=== PATIENT | female | born 1945 | race Hispanic/Latino ===

== ENCOUNTER 2018-10-08 13:35 | Observation (INO) | payer MEDICARE ==
[2018-10-07 15:41] LABS: BASOPHILS # (AUTO) 0.1 (0.0-0.1); BASOPHILS % 0.5 % (0.0-1.0); EOSINOPHILS # (AUTO) 0.2 (0.0-0.4); EOSINOPHILS % 1.9 % (0.0-6.0); HEMATOCRIT 42.3 % (34.2-44.1); HEMOGLOBIN 13.9 g/dL (12.0-16.0); LYMPHOCYTES % 56.9 % (18.0-39.1); MEAN CORPUSCULAR HEMOGLOBIN 30.6 pg (28-32); MEAN CORPUSCULAR HGB CONC 32.9 g/dL (31-35); MEAN CORPUSCULAR VOLUME 93.2 fL (81-99); MONOCYTES # (AUTO) 0.6 (0.2-0.8); MONOCYTES % 5.3 % (4.4-11.3); NEUTROPHILS # (AUTO) 3.8 (2.1-6.9); NEUTROPHILS % 35.2 % (38.7-80.0); PLATELET COUNT 258 x10e3/uL (140-360); RED BLOOD COUNT 4.54 x10e6/uL (3.6-5.1); RED CELL DISTRIBUTION WIDTH 13.1 % (11.7-14.4)
[2018-10-07 15:54] LABS: INR 0.87; PROTHROMBIN TIME 12.6 seconds (11.9-14.5)
[2018-10-07 16:02] LABS: ALANINE AMINOTRANSFERASE 13 IU/L (0-55); ALBUMIN 3.9 g/dL (3.5-5.0); ALBUMIN/GLOBULIN RATIO 1.1 (0.8-2.0); ALKALINE PHOSPHATASE 56 IU/L (40-150); ANION GAP 9.9 mmol/L (8-16); BLOOD UREA NITROGEN 16 mg/dL (7-26); BUN/CREATININE RATIO 21 (6-25); CALCIUM 10.1 mg/dL (8.4-10.2); CARBON DIOXIDE 30 mmol/L (22-29); CHLORIDE 103 mmol/L (98-107); CHOL/HDL RATIO 2.5 (3.0-3.6); CHOLESTEROL 152 MD/DL (0-199); CREATININE, SERUM 0.78 mg/dL (0.57-1.11); EST GLOMERULAR FILTRATION RATE > 60 ML/MIN (60-); GLUCOSE 98 mg/dL (74-118); HDL CHOLESTEROL 62 MG/DL (40-60); LDL CHOLESTEROL 66 MG/DL (60-130); POTASSIUM 4.9 mmol/L (3.5-5.1); SODIUM 138 mmol/L (136-145); TRIGLYCERIDES 118 MG/DL (0-149)
[2018-10-07 17:21] LABS: LYMPHOCYTES % (MANUAL) 44 % (19-48); MONOCYTES % (MANUAL) 1 % (3.4-9.0); NEUTROPHILS % (MANUAL) 40 % (40-74); PLATELET ESTIMATE ADEQUATE; PLATELET MORPHOLOGY COMMENT FEW LARGE; RBC MORPHOLOGY COMMENT NORMAL
[~2018-10-08] VITALS: Ht 156.2 cm; Wt 83.5 kg
[2018-10-08] VITALS (15 sets, daily range): BP systolic 159–207; BP diastolic 61–98
[~2018-10-08 13:35] MED LIST: ALBUTEROL0.63 MG/3 NEB; ASPIR 8181 MG PO; AZITHROMYCIN250 MG PO; BENAZEPRIL HCL10 MG PO; BENAZEPRIL HCL20 MG PO; CLOPIDOGREL75 MG PO; COQ-10100 MG PO; ISOSORBIDE MONO20 MG PO; MAGNESIUM OXID400 MG PO; NORVASC10 MG PO; PROBIOTIC & AC1 EACH PO; SIMVASTATIN40 MG PO; TUMERIC PO; VENTOLIN HFA18 GM INH; VITAMIN C1000 MG PO; ZYRTEC10 MG PO
[2018-10-08] MEDS ORDERED: ALPRAZOLAM 0.5 MG TAB ONE (13:44)
[2018-10-08] MEDS ORDERED: SODIUM CHLORIDE 0.9% 1000ML 1,000 ML ONE (13:44)
[2018-10-08] MEDS ORDERED: DIPHENHYDRAMINE HCL 25 MG CAP ONE (13:44)
--- NOTE | 2018-10-08 14:13 | NUR ---
AMBULATED TO BAY 10. PREPROCEDURE TEACHING PROVIDED. PREPPED PER PROCEDURE PROTOCOL. AAOX4, VSS. DP/PT PULSES 2+ BILATERALLY. POSITIVE KALE'S TEST TO R WRIST. BENADRYL 25MG X2 PO AND XANAX 0.5MG X1 PO ADMINISTERED. BED IN LOWEST POSITION, SIDE RAILS UP, CALL LIGHT WITHIN REACH. FAMILY AT BEDSIDE.
[2018-10-08] MEDS ORDERED: MIDAZOLAM HCL 2 MG/2 ML VIAL ONE ×2 (15:43→17:37)
[2018-10-08] MEDS ORDERED: VERAPAMIL HCL 2.5 MG/ML 2 ML VIAL ONE (15:43)
[2018-10-08] MEDS ORDERED: HEPARIN SOD/SOD CHLORIDE 2,000 ML ONE (15:44)
[2018-10-08] MEDS ORDERED: LIDOCAINE HCL 2% LOCAL 20 ML VIAL ONE (15:44)
[2018-10-08] MEDS ORDERED: FENTANYL CITRATE/PF 100MCG/2 ML INJ ONE (15:44)
[2018-10-08] MEDS ORDERED: IOPAMIDOL 370 MG/ML 200 ML INFUS..BTL INJ ONE ×2 (15:44→17:47)
[2018-10-08] MEDS ORDERED: EPTIFIBATIDE 10 ML ONE (17:50)
[2018-10-08] MEDS ORDERED: TICAGRELOR 90 MG TABLET ONE (17:51)
--- NOTE | 2018-10-08 18:09 | NUR ---
1809 Received pt in Student Support Counselor recovery Room #9, Identiferx2 [facility] Dr Garcia stent fix RCAx1.Pt received 100fentnyl/3 versed ivp in r and d lab technician.Alba Castorena gave report.Rt tr band slight ooze in lab. ok to titrate at 2000pm. Iv infusing via pump to lt arm at 100cchr Assisted pt with juice po Resp RA Denies necessity to defecate or urinate Resp shallow and regular on room 98% sats. Family at bedside DR Garcia explained results.Pt scheduled for tele observation bed.Vs stable and EKg
--- NOTE | 2018-10-08 19:32 | Operative Report ---
DATE OF PROCEDURE: October 08, 2018 INDICATIONS: Coronary artery disease and abnormal stress test. PROCEDURES PERFORMED 1. Left heart catheterization. 2. Selective coronary angiography. 3. Percutaneous transluminal coronary angioplasty and stent placement to the distal right coronary artery. 4. Deployment right wrist transradial band. COMPLICATIONS: None. RECOMMENDATIONS: Dual-antiplatelet therapy for life. Access obtained in the right ulnar artery. Using ultrasound guidance, a 6-German sheath was placed. There was right coronary artery with dominant vessel. Acute marginal branch 80%. Distal RCA 70%. 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 Left anterior descending artery proximal diffuse 20% to 30%, mid and distal diffuse 30% to 50% stenosis, LV end-diastolic pressure of 10. A decision was made to intervene on the right coronary artery. The patient received intravenous heparin, Integrilin, and Brilinta for anticoagulation. The right coronary artery was cannulated using a JR4 6-German guiding catheter. A short Luge wire was advanced across the lesion, primary stent 2.5 x 12 mm at 18 atmospheres, excellent end result, less than 0% residual stenosis, ESTHER-3 flow. No complications. Guide sheaths were removed. TR band applied. Patient admitted to the hospital for observation overnight. Job#: [id number]
[2018-10-08] MEDS ORDERED: HYDRALAZINE HCL 20 MG/ML VIAL ONE (19:53)
--- NOTE | 2018-10-08 20:05 | NUR ---
Hydralyzazine 20 ivp for systolic bp greater 200 with recovery obtained 170 systolic
[2018-10-08] MEDS ORDERED: NITROGLYCERIN 0.4 MG SUBL ONE (20:19)
[2018-10-08] MEDS ORDERED: MORPHINE SULFATE INJ 4 MG/ML INJ 1ML ONE ×2 (20:27→20:41)
[2018-10-08] MEDS ORDERED: ASPIRIN 81 MG CHEW TAB PO ONE (20:30)
[2018-10-08] MEDS ORDERED: NITROGLYCERIN 0.4 MG SUBL SL ONE (20:30)
--- NOTE | 2018-10-08 20:30 | NUR ---
C/O sternal pressure pressure with diaphoresis BS 91, Medicate 0.4 NTG sl w/o relief and additional 4mg morphine sulfate for c/o 9/10 CP Cardiac enzymes drawn by lab and stat CXR done with 12 Lead.Additional 4mg IVP MOrphine and Lasic [address] Omer Bed Disposition changed to ICU status.
[2018-10-08] MEDS ORDERED: FUROSEMIDE INJ 10 MG/ML 4 ML VIAL ONE (20:41)
--- NOTE | 2018-10-08 20:56 | NUR ---
Returned to Cardiac Solution Manager related status change for patient. Patient c/o chest pain and shortness of breath. Dr. Garcia notified. Order provided for ICU , cardiac enzymes, and stat EKG. Additional order for 40 Lasix IV and 4mg Morphine. Additional order for IV 50ml/hr and stat chest x-ray. Laurie Hernandez RN administered medications and Lluvia Fonseca RN provided assistance.
[2018-10-08 21:10] LABS: CREATINE KINASE MB 1.6 ng/mL (0-5.0)
--- NOTE | 2018-10-08 21:30 | NUR ---
2129 phone report to Emily ICU nurse. Dr Garcia, [facility] fix with 1 stent to RCA. 100 Fentanyl/3Versed given by Alba LEONARDO Sedation labor mediator nurse. SL Nitroglycerin 0.4mgx1,w/o relief .additional 4mg iv Morphine at 2034pm and 2044pm for total 8mg ivp.O2 2Lnc per pt request sats 100% at this time 40 mg lasix ivp.given with Multiple times served bedpan and void qs. Stat 12lead read Dr Garcia(remote per Lluvia LEONARDO) and Stat cardiac enzymes drawn and Stat Cxr pending results. Monitor remains NSR pain complain pain sternal pressure radiates to back still 9/10 pain. This reported to ICU nurse,Rt TR band ooze and TR band titration slowed with positive 6cc in 12cc TR band present. Pt instructed to no move Rt arm. Rt radial pulse present. Stick was rt ulnar and no active bleed.TR band device intact Iv 400 0.9 NS at 50cchr and controller. Transported with zoll monitoring on.
--- NOTE | 2018-10-08 22:30 | NUR ---
Received patient anxious, high blood pressures running systolics above 190, complaining of pain at a scale of 10 despite both doses of morphine, hydralazine and nitroglycerine having been administered. Settled calmly in bed and reassured
--- NOTE | 2018-10-08 23:06 | Diagnostic Imaging Report ---
EXAM: CHEST SINGLE (PORTABLE), AP 1 view INDICATION: Chest pain COMPARISON: None FINDINGS: LINES/TUBES: None LUNGS: No consolidations or edema. PLEURA: No effusions or pneumothorax. HEART AND MEDIASTINUM: Normal size and contour. BONES AND SOFT TISSUES: No acute findings. IMPRESSION: No acute thoracic abnormality. Signed by: Dr. Niyah Carias M.D. on 10/08/2018 11:03 PM
[2018-10-08] MEDS ORDERED: HYDRALAZINE HCL 20 MG/ML VIAL IV PRN (23:45)
[2018-10-08] MEDS ORDERED: MORPHINE SULFATE INJ 4 MG/ML INJ 1ML IV PRN (23:45)
[2018-10-09] VITALS (13 sets, daily range): BP systolic 114–213; BP diastolic 54–80
--- NOTE | 2018-10-09 01:00 | NUR ---
Dr Garcia called concerning the complaints of chest pain, radiating to the back and complaints of nausea. Pain not alleviated by morphine, prescribed additional pain medicine Dilaudid. A repeat ekg, and cardiac enzymes done. Awaiting results. Patient Reassured, systolic blood pressure in the 150 after a dose of hydralazine but sinus tachycardia to a high of 110
[2018-10-09] MEDS ORDERED: HYDROMORPHONE 2MG/ML 2 MG/ML ML IV PRN (01:15)
[2018-10-09 01:18] LABS: BASOPHILS # (AUTO) 0.1 (0.0-0.1); BASOPHILS % 0.3 % (0.0-1.0); EOSINOPHILS % 0.2 % (0.0-6.0); HEMOGLOBIN 13.7 g/dL (12.0-16.0); LYMPHOCYTES % 35.5 % (18.0-39.1); MEAN CORPUSCULAR HEMOGLOBIN 30.7 pg (28-32); MEAN CORPUSCULAR HGB CONC 33.4 g/dL (31-35); MEAN CORPUSCULAR VOLUME 91.9 fL (81-99); MONOCYTES # (AUTO) 0.5 (0.2-0.8); MONOCYTES % 3.1 % (4.4-11.3); NEUTROPHILS # (AUTO) 10.3 (2.1-6.9); NEUTROPHILS % 60.6 % (38.7-80.0); PLATELET COUNT 247 x10e3/uL (140-360); RED BLOOD COUNT 4.46 x10e6/uL (3.6-5.1); RED CELL DISTRIBUTION WIDTH 13.2 % (11.7-14.4)
[2018-10-09 01:38] LABS: CREATINE KINASE MB 1.5 ng/mL (0-5.0)
[2018-10-09 01:58] LABS: BLOOD UREA NITROGEN 13 mg/dL (7-26); BUN/CREATININE RATIO 19 (6-25); CALCIUM 9.5 mg/dL (8.4-10.2); CARBON DIOXIDE 23 mmol/L (22-29); EST GLOMERULAR FILTRATION RATE > 60 ML/MIN (60-); GLUCOSE 119 mg/dL (74-118)
[2018-10-09 02:59] LABS: CHLORIDE 105 mmol/L (98-107); POTASSIUM 3.6 mmol/L (3.5-5.1); SODIUM 141 mmol/L (136-145)
--- NOTE | 2018-10-09 03:00 | NUR ---
Received cardiac enzymes results, within normal range. Patient calmly asleep and relaxed
[2018-10-09 03:01] LABS: ANION GAP 16.6 mmol/L (8-16)
[2018-10-09] MEDS ORDERED: ALBUTEROL SULF 0.083% NEB SOLN 3 ML NEB NEB SCH (06:00)
--- NOTE | 2018-10-09 06:00 | NUR ---
Patient complaining of pain with urination. Urine sample collected for urinalysis
--- NOTE | 2018-10-09 07:20 | NUR ---
Patient handed over stable
[2018-10-09 07:34] LABS: BILIRUBIN,URINE NEGATIVE (NEGATIVE); CLARITY,URINE CLEAR (CLEAR); COLOR,URINE YELLOW (YELLOW); KETONES,URINE 2+ (NEGATIVE); LEUKOCYTE ESTERASE ,URINE NEGATIVE (NEGATIVE); NITRITE,URINE NEGATIVE (NEGATIVE); PROTEIN,URINE DIPSTICK NEGATIVE (NEGATIVE); URINE UROBILINOGEN 0.2 mg/dL (0.2 - 1)
[2018-10-09 07:41] LABS: EPITHELIAL CELLS,URINE FEW /LPF; MUCUS,URINE FEW (RARE); WBC,URINE (MAN) 0-5 /HPF (0-5)
[2018-10-09] MEDS ORDERED: LACTOBACILLUS ACIDOPHILUS CAPSULE PO SCH (09:00)
[2018-10-09] MEDS ORDERED: ISOSORBIDE MONONITRATE 20 MG TAB PO SCH (09:00)
[2018-10-09] MEDS ORDERED: MAGNESIUM OXIDE 400 MG TAB PO SCH ×2 (09:00)
[2018-10-09] MEDS ORDERED: CLOPIDOGREL BISULFATE 75 MG TAB PO SCH (09:00)
[2018-10-09] MEDS ORDERED: BENAZEPRIL HCL 10 MG TAB PO SCH (09:00)
[2018-10-09] MEDS ORDERED: ASCORBIC ACID 500 MG TAB PO SCH (09:00)
[2018-10-09] MEDS ORDERED: LORATADINE 10 MG TAB PO SCH (09:00)
[2018-10-09] MEDS ORDERED: ASPIRIN 81 MG CHEW TAB PO SCH (09:00)
[2018-10-09 10:07] LABS: CREATINE KINASE MB 1.7 ng/mL (0-5.0)
[2018-10-09 11:12] LABS: BASOPHILS % 0.1 % (0.0-1.0); HEMATOCRIT 37.3 % (34.2-44.1); HEMOGLOBIN 12.5 g/dL (12.0-16.0); LYMPHOCYTES # (AUTO) 3.9 (1.0-3.2); LYMPHOCYTES % 29.9 % (18.0-39.1); MEAN CORPUSCULAR HEMOGLOBIN 30.7 pg (28-32); MEAN CORPUSCULAR HGB CONC 33.5 g/dL (31-35); MEAN CORPUSCULAR VOLUME 91.6 fL (81-99); MONOCYTES # (AUTO) 0.5 (0.2-0.8); MONOCYTES % 3.9 % (4.4-11.3); NEUTROPHILS # (AUTO) 8.5 (2.1-6.9); NEUTROPHILS % 65.7 % (38.7-80.0); PLATELET COUNT 251 x10e3/uL (140-360); RED BLOOD COUNT 4.07 x10e6/uL (3.6-5.1); RED CELL DISTRIBUTION WIDTH 13.3 % (11.7-14.4)
[2018-10-09] MEDS ORDERED: METOPROLOL TART25 MG PO ×2 (12:26→12:27)
--- NOTE | 2018-10-09 12:32 | NUR ---
SOCIAL WORK INITIAL ASSESSMENT Pest Control Service Technician to bedside to discuss plan of care with patient/family. CM/SW role and care transitions discussed. Anticipated discharge plan discussed along with duration of care. CM/SW discussed patients right to make decisions in care. CM/SW work hours given. Patient lives: IN OWN HOUSE WITH FAMILY Admit/Transfer: VIA ED FROM HOME POA/Emergency contact: KERI [phone] Current/Previous Home Health: NONE PCP/Follow-up Care: ANIL Current/Previous DME: NONE Other Services: NONE Employment Status: RETIRED Areas of Concerns: NONE Referral Needs: NONE Education Needs: NONE IMM/ROBERTS given and signed (if applicable): NA Goal for discharge: RETURN HOME INDEPENDENTLY CM/SW left business card at the bedside with contact information. Name and number was also written on the patients whiteboard. Patient verbalized understanding of discussion. CM will follow-up with ongoing discharge and transition of care needs.
--- NOTE | 2018-10-09 13:05 | Progress Note ---
DATE: CARDIOLOGY PROGRESS NOTE: SUBJECTIVE: Patient complains of some dizziness and also some occasional abdominal pain and occasional palpitations. Denies any chest pain this morning. OBJECTIVE VITAL SIGNS: Temperature 99.9, pulse 94, respiratory rate 17, blood pressure 114/54, oxygen saturation 100% on room air. GENERAL: Alert and oriented x3, resting comfortably in bed. Does not appear to be in any acute distress. NECK: Supple. No JVD noted. CARDIOVASCULAR: Regular rate and rhythm. Tachycardic. No murmurs noted. No gallops. LUNGS: Clear to auscultation throughout. No wheezing. No rhonchi or crackles. ABDOMEN: Some tenderness to the periumbilical area. LOWER EXTREMITIES: No edema. 2+ pedal pulses. CARDIOVASCULAR MEDICATIONS 1. Isosorbide 20 mg p.o. daily. 2. Magnesium 400 mg p.o. daily. 3. Plavix 75 p.o. daily. 4. Aspirin 81 p.o. daily. 5. Simvastatin 40 p.o. nightly. 6. Hydralazine 20 mg IV every 2 hours p.r.n. for hypertension. LABORATORY DATA: WBC 12.95, hemoglobin 12.5, hematocrit 37.3, platelets 251. Chest x-ray from yesterday with no acute thoracic abnormalities. TELEMETRY: Sinus tachycardia. IMPRESSION 1. Coronary artery disease, status post drug-eluting stent to the right coronary artery yesterday. 2. Hypertension. 3. Anxiety. 4. Dyslipidemia. 5. Leukocytosis. RECOMMENDATIONS. Okay to discharge this patient from a cardiac standpoint. Patient is to followup in the clinic in the next week. Continue the above-listed cardiac medications. Continue to monitor right wrist access point. Increased hydration and monitor dizziness as outpatient. Continue current treatment for recent bronchitis at home. We will continue to monitor. Dictated by: Danya Coelho NP Job#: [id number] PATTI
--- NOTE | 2018-10-09 14:46 | NUR ---
patient discharged with all personal belongings via wheelchair and left with family in private auto. all discharge instructions (verbal and written handouts) given to patient and . Patient verbalized understanding of all instructions. patient to follow up with dr. moya outpatient next 1-2 weeks.
[2018-10-09] MEDS ORDERED: SIMVASTATIN 40 MG TAB PO SCH (21:00)
== END 2018-10-09 15:20 | disposition home or self-care (01) ==
LOC: CATH LAB 13:35 → INTOOBSV 21:19 → ICU 21:19
PROVIDERS: ADMIT Internal Medicine Interventional Cardiology; ATTEND Internal Medicine Interventional Cardiology
DX: I25.118 Atherosclerotic heart disease of native coronary artery with other forms of angina pectoris (principal); Z01.812 Encounter for preprocedural laboratory examination; Z91.048 Other nonmedicinal substance allergy status; I10 Essential (primary) hypertension; R09.89 Other specified symptoms and signs involving the circulatory and respiratory systems; E78.5 Hyperlipidemia, unspecified; F41.9 Anxiety disorder, unspecified; D72.829 Elevated white blood cell count, unspecified; R42 Dizziness and giddiness
CPT/HCPCS: 93458; C9600; 36415; 71045; 80048; 80053; 80061; 81001; 82550; 82553; 82948; 83036; 84484; 85025; 85610; 92928; 93005; 94640; 96360; 96361; C1769; C1874; C1887; G0378; J0360; J1327; J1940; J2001; J2250; J2270; J7030; Q9967

== ENCOUNTER → 2021-10-15 | Day surgery (SDC) | payer MEDICARE, OTHER ==
[~2021-10-15] MED LIST changes: +ATORVASTATIN CA20 MG PO; +ENTRESTO 24 MG1 EACH; +FENTANYL CITRATE/PF 100MCG/2 ML INJ ONE; +METOPROLOL TART25 MG PO; +MIDAZOLAM HCL 2 MG/2 ML VIAL ONE; +OR PHACO EYE KIT ONE; +PREOP PHACO EYE KIT ONE
[2021-10-15 13:08] VITALS: BP 172/74
== END | disposition home or self-care (01) ==
LOC: OR 12:10
PROVIDERS: ATTEND Ophthalmology
DX: H25.12 Age-related nuclear cataract, left eye (principal); I25.10 Atherosclerotic heart disease of native coronary artery without angina pectoris; I11.0 Hypertensive heart disease with heart failure; I50.22 Chronic systolic (congestive) heart failure; J45.909 Unspecified asthma, uncomplicated; E78.5 Hyperlipidemia, unspecified; K44.9 Diaphragmatic hernia without obstruction or gangrene; K57.90 Diverticulosis of intestine, part unspecified, without perforation or abscess without bleeding; E66.9 Obesity, unspecified; N20.0 Calculus of kidney; M54.2 Cervicalgia; M54.9 Dorsalgia, unspecified; T78.49XA Other allergy, initial encounter; Z68.32 Body mass index [BMI] 32.0-32.9, adult; X58.XXXA Exposure to other specified factors, initial encounter; Z01.812 Encounter for preprocedural laboratory examination; Z20.822 Contact with and (suspected) exposure to COVID-19; Z79.899 Other long term (current) drug therapy; Z79.82 Long term (current) use of aspirin; Z95.5 Presence of coronary angioplasty implant and graft
CPT/HCPCS: 66984; J2250; J3010; U0002

== ENCOUNTER → 2021-11-05 | Day surgery (SDC) | payer MEDICARE, OTHER ==
[~2021-11-05] MED LIST changes: -ENTRESTO 24 MG1 EACH; +ENTRESTO 24 MG1 EACH PO
[2021-11-05 14:05] VITALS: BP 156/66
== END | disposition home or self-care (01) ==
LOC: OR 10:35
PROVIDERS: ATTEND Ophthalmology
DX: H25.11 Age-related nuclear cataract, right eye (principal); I25.10 Atherosclerotic heart disease of native coronary artery without angina pectoris; I11.0 Hypertensive heart disease with heart failure; I50.9 Heart failure, unspecified; G47.00 Insomnia, unspecified; J45.909 Unspecified asthma, uncomplicated; E78.5 Hyperlipidemia, unspecified; E66.9 Obesity, unspecified; K44.9 Diaphragmatic hernia without obstruction or gangrene; F95.9 Tic disorder, unspecified; N20.0 Calculus of kidney; M54.9 Dorsalgia, unspecified; Z01.812 Encounter for preprocedural laboratory examination; Z20.822 Contact with and (suspected) exposure to COVID-19; Z79.82 Long term (current) use of aspirin; Z79.899 Other long term (current) drug therapy; Z68.33 Body mass index [BMI] 33.0-33.9, adult; Z95.5 Presence of coronary angioplasty implant and graft
CPT/HCPCS: 66982; J2250; J3010; U0002; V2788

== ENCOUNTER 2024-11-27 11:13 | Inpatient (IN) | payer MEDICARE, OTHER ==
[~2024-11-27] VITALS: Ht 154.9 cm; Wt 80.7 kg
[~2024-11-27 11:13] MED LIST changes: +AMOX TR-K CLV1 EAC2 PO; -FENTANYL CITRATE/PF 100MCG/2 ML INJ ONE; +FUROSEMIDE20 MG PO; +METOPROLOL SUCC50 MG PO; -MIDAZOLAM HCL 2 MG/2 ML VIAL ONE; +OLMESARTAN MEDO40 MG PO; -OR PHACO EYE KIT ONE; -PREOP PHACO EYE KIT ONE
[2024-11-27] MEDS ORDERED: DILTIAZEM HCL IV 5MG/ML 25 ML VIAL ONE (11:24)
[2024-11-27 11:29] LABS: BASOPHILS # (AUTO) 0.1 (0.0-0.1); BASOPHILS % 0.3 % (0.0-1.0); EOSINOPHILS # (AUTO) 0.2 (0.0-0.4); EOSINOPHILS % 0.9 % (0.0-6.0); HEMATOCRIT 40.7 % (34.2-44.1); HEMOGLOBIN 13.2 g/dL (12.0-16.0); LYMPHOCYTES # (AUTO) 19.4 (1.0-3.2); LYMPHOCYTES % 81.9 % (18.0-39.1); MEAN CORPUSCULAR HGB CONC 32.4 g/dL (31-35); MEAN CORPUSCULAR VOLUME 95.5 fL (81-99); MONOCYTES # (AUTO) 0.5 (0.2-0.8); MONOCYTES % 2.2 % (4.4-11.3); NEUTROPHILS # (AUTO) 3.5 (2.1-6.9); NEUTROPHILS % 14.6 % (38.7-80.0); PLATELET COUNT 229 x10e3/uL (140-360); RED BLOOD COUNT 4.26 x10e6/uL (3.6-5.1); RED CELL DISTRIBUTION WIDTH 13.5 % (11.7-14.4); WHITE BLOOD COUNT 23.73 x10e3/uL (4.8-10.8)
[2024-11-27] MEDS ORDERED: SODIUM CHLORIDE FLUSH 10 ML SYR IV PRN (11:30)
[2024-11-27] MEDS: DILTIAZEM HCL 5 MG/ML 5 ML VIAL IV ONE (11:31)
[2024-11-27 11:48] LABS: ALANINE AMINOTRANSFERASE 15 IU/L (0-55); ALBUMIN 3.9 g/dL (3.5-5.0); ALBUMIN/GLOBULIN RATIO 1.1 (0.8-2.0); ALKALINE PHOSPHATASE 44 IU/L (40-150); ANION GAP 14.5 mmol/L (8-16); BILIRUBIN,TOTAL 0.4 mg/dL (0.2-1.2); BLOOD UREA NITROGEN 20 mg/dL (7-26); BUN/CREATININE RATIO 26 (6-25); CALCIUM 9.8 mg/dL (8.4-10.2); CARBON DIOXIDE 22 mmol/L (22-29); CHLORIDE 112 mmol/L (98-107); CREATININE, SERUM 0.77 mg/dL (0.57-1.11); EST GLOMERULAR FILTRATION RATE 78 ML/MIN (>=60); GLUCOSE 113 mg/dL (74-118); POTASSIUM 4.5 mmol/L (3.5-5.1); SODIUM 144 mmol/L (136-145); TOTAL PROTEIN 7.4 g/dL (6.5-8.1)
[2024-11-27 11:56] LABS: TROPONIN I < 0.001 ng/mL (0-0.300)
[2024-11-27 12:11] LABS: EOSINOPHILS % (MANUAL) 1 % (0-7); LYMPHOCYTES % (MANUAL) 73 % (19-48); NEUTROPHILS % (MANUAL) 20 % (40-74); PLATELET ESTIMATE ADEQUATE; PLATELET MORPHOLOGY COMMENT NORMAL; RBC MORPHOLOGY COMMENT NORMAL; REACTIVE LYMPHOCYTES 6
[2024-11-27] MEDS: DILTIAZEM HCL 30 MG TAB PO SCH (12:33)
[2024-11-27] MEDS ORDERED: ONDANSETRON HCL INJ 2MG/ML 2ML 2 MG/ML VIAL IV PRN ×2 (12:45→15:45)
[2024-11-27] MEDS ORDERED: SODIUM CHLORIDE FLUSH 10 ML SYR INJ PRN (12:45)
[2024-11-27] MEDS: HEPARIN SOD/DEXTROSE 5% 25000 UNIT/250 ML BAG IV SCH (12:45)
[2024-11-27] MEDS ORDERED: HEPARIN 25,000 UNIT/D5W 250ML 250 ML IV ONE (12:51)
[2024-11-27] MEDS ORDERED: HEPARIN SOD (PORCINE) 1000 UNIT/ML SDV ONE (12:51)
[2024-11-27] MEDS: METOPROLOL TARTRATE 25 MG TAB PO SCH (13:00)
[2024-11-27 13:17] LABS: CLARITY,URINE HAZY (CLEAR); COLOR,URINE YELLOW (YELLOW); LEUKOCYTE ESTERASE ,URINE TRACE (NEGATIVE); NITRITE,URINE NEGATIVE (NEGATIVE); PH,URINE 6.5 (5 - 7); PROTEIN,URINE DIPSTICK NEGATIVE (NEGATIVE)
[2024-11-27 13:18] LABS: BILIRUBIN,URINE NEGATIVE (NEGATIVE); GLUCOSE, URINE NEGATIVE (NEGATIVE); KETONES,URINE NEGATIVE (NEGATIVE); URINE UROBILINOGEN 0.2 mg/dL (0.2 - 1)
[2024-11-27 13:26] LABS: BACTERIA,URINE FEW /HPF; EPITHELIAL CELLS,URINE FEW /LPF
[2024-11-27] MEDS: HEPARIN SOD (PORCINE) 5,000 UNIT/ML VIAL IV ONE (13:30)
[2024-11-27 14:08] LABS: INR 0.9; PARTIAL THROMBOPLASTIN TIME 25.2 seconds (23.8-35.5); PROTHROMBIN TIME 12.7 seconds (11.9-14.5)
[2024-11-27] MEDS: KETOROLAC TROMETHAMINE 30 MG/ML VIAL IV STA (14:29)
[2024-11-27] MEDS ORDERED: DEXTROSE 50% SYRINGE 50 ML IV PRN (15:45)
[2024-11-27] MEDS ORDERED: SIMETHICONE 80 MG CHEW PO PRN (15:45)
[2024-11-27] MEDS ORDERED: BENZONATATE 100 MG CAP PO PRN (15:45)
[2024-11-27] MEDS ORDERED: DIPHENHYDRAMINE HCL 25 MG CAP PO PRN (15:45)
[2024-11-27] MEDS ORDERED: LIDOCAINE 4% PATCH TP PRN (15:45)
[2024-11-27] MEDS ORDERED: ALBUTEROL/IPRATROPIUM 3 ML NEB NEB PRN (15:45)
[2024-11-27] MEDS ORDERED: HYDRALAZINE HCL 20 MG/ML VIAL IV PRN (15:45)
[2024-11-27] MEDS ORDERED: MELATONIN 5 MG TABLET PO PRN (15:45)
[2024-11-27] MEDS ORDERED: DOCUSATE SODIUM 100 MG CAP PO PRN (15:45)
[2024-11-27] MEDS ORDERED: POTASSIUM CHLORIDE 20 MEQ TAB CR PO PRN (15:45)
[2024-11-27] MEDS ORDERED: ENOXAPARIN SOD INJ 40 MG/0.4 ML SYR SC SCH (17:00)
[2024-11-27 17:28] VITALS: PULSE 104; RESP 16; TEMP 98.3
[2024-11-27] MEDS: METOPROLOL TARTRATE 50 MG TAB PO SCH (17:34)
[2024-11-27 18:36] LABS: INR 0.93
[2024-11-27 18:38] LABS: PARTIAL THROMBOPLASTIN TIME 52.2 seconds (23.8-35.5)
[2024-11-27] MEDS ORDERED: NAPROXEN250 MG PO (18:48)
[2024-11-27] MEDS ORDERED: ASPIRIN CHEW81 MG PO (18:48)
[2024-11-27 18:50] LABS: TROPONIN I 0.172 ng/mL (0-0.300)
[2024-11-27 19:57] VITALS: BP 147/85; PULSE 67; RESP 18; TEMP 98.6; O2SAT 99
[2024-11-27 20:11] VITALS: BP 147/85; PULSE 67; RESP 18; TEMP 98.6; O2SAT 99
[2024-11-27 20:45] VITALS: BP 147/85; PULSE 67; RESP 18; TEMP 98.6; O2SAT 99
[2024-11-28] VITALS (8 sets, daily range): BP systolic 126–176; BP diastolic 54–97; PULSE 51–97; RESP 16–20; TEMP 97.3–98.7; O2SAT 97–99
[2024-11-28 00:30] LABS: ANION GAP 14.6 mmol/L (8-16); CALCIUM 8.8 mg/dL (8.4-10.2); CREATININE, SERUM 0.82 mg/dL (0.57-1.11); POTASSIUM 4.6 mmol/L (3.5-5.1)
[2024-11-28 00:48] LABS: TROPONIN I 0.152 ng/mL (0-0.300)
[2024-11-28] MEDS: HEPARIN SOD/DEXTROSE 5% 25000 UNIT/250 ML BAG IV SCH (00:49)
[2024-11-28 00:50] LABS: THYROID STIMULATING HORMONE 0.818 uIU/mL (0.350-4.940)
[2024-11-28 06:36] LABS: BASOPHILS % 0.2 % (0.0-1.0); EOSINOPHILS # (AUTO) 0.2 (0.0-0.4); EOSINOPHILS % 0.9 % (0.0-6.0); HEMATOCRIT 37.4 % (34.2-44.1); HEMOGLOBIN 12.2 g/dL (12.0-16.0); LYMPHOCYTES # (AUTO) 17.9 (1.0-3.2); LYMPHOCYTES % 80.2 % (18.0-39.1); MEAN CORPUSCULAR HEMOGLOBIN 31.4 pg (28-32); MEAN CORPUSCULAR HGB CONC 32.6 g/dL (31-35); MEAN CORPUSCULAR VOLUME 96.4 fL (81-99); MONOCYTES # (AUTO) 0.6 (0.2-0.8); MONOCYTES % 2.6 % (4.4-11.3); NEUTROPHILS # (AUTO) 3.6 (2.1-6.9); NEUTROPHILS % 15.9 % (38.7-80.0); PLATELET COUNT 201 x10e3/uL (140-360); RED BLOOD COUNT 3.88 x10e6/uL (3.6-5.1); RED CELL DISTRIBUTION WIDTH 13.5 % (11.7-14.4); WHITE BLOOD COUNT 22.35 x10e3/uL (4.8-10.8)
[2024-11-28 07:30] LABS: ALBUMIN 3.2 g/dL (3.5-5.0); ALBUMIN/GLOBULIN RATIO 1.1 (0.8-2.0); ANION GAP 12.2 mmol/L (8-16); BILIRUBIN,TOTAL 0.4 mg/dL (0.2-1.2); CALCIUM 8.8 mg/dL (8.4-10.2); CREATININE, SERUM 0.75 mg/dL (0.57-1.11); POTASSIUM 4.2 mmol/L (3.5-5.1); TOTAL PROTEIN 6.1 g/dL (6.5-8.1)
[2024-11-28 07:55] LABS: TROPONIN I 0.148 ng/mL (0-0.300)
[2024-11-28] MEDS ORDERED: HEPARIN SOD/DEXTROSE 5% 25000 UNIT/250 ML BAG IV SCH (08:00)
[2024-11-28] MEDS: PANTOPRAZOLE SOD 40 MG TABEC PO SCH (09:07)
[2024-11-28] MEDS: HEPARIN 25,000 UNIT/D5W 250ML 250 ML IV SCH ×2 (09:08→16:56)
[2024-11-28 11:38] LABS: EOSINOPHILS % (MANUAL) 2 % (0-7); LYMPHOCYTES % (MANUAL) 68 % (19-48); MONOCYTES % (MANUAL) 1 % (3.4-9.0); NEUTROPHILS % (MANUAL) 28 % (40-74); PLATELET ESTIMATE ADEQUATE; PLATELET MORPHOLOGY COMMENT NORMAL; RBC MORPHOLOGY COMMENT NORMAL; REACTIVE LYMPHOCYTES 1
[2024-11-28] MEDS: OLMESARTAN 20 MG TAB PO SCH (14:20)
[2024-11-29] VITALS: BP 140/94; PULSE 56; RESP 18; TEMP 97.6; O2SAT 98
[2024-11-29] MEDS: ACETAMINOPHEN 325 MG TAB PO PRN (03:11)
[2024-11-29 04:00] VITALS: BP 150/61; PULSE 50; RESP 20; TEMP 97.3; O2SAT 99
[2024-11-29 08:00] VITALS: BP 171/78; PULSE 56; RESP 18; TEMP 98.1; O2SAT 99
[2024-11-29 08:34] VITALS: BP 171/78; PULSE 56; RESP 18; TEMP 98.1; O2SAT 99
[2024-11-29] MEDS: ASPIRIN 81 MG CHEW TAB PO SCH (09:05)
[2024-11-29 12:14] VITALS: BP 168/68; PULSE 52; RESP 18; TEMP 97.8; O2SAT 99
[2024-11-29] MEDS ORDERED: METOPROLOL TART50 MG PO (13:06)
[2024-11-29] MEDS ORDERED: ELIQUIS5 MG PO (13:06)
[2024-11-29] MEDS ORDERED: NORVASC10 MG PO (13:39)
[2024-11-29] MEDS: AMLODIPINE BESYLATE 10 MG TAB PO ONE (14:11)
[2024-11-29] MEDS: APIXABAN 5 MG TABLET PO SCH (16:33)
[2024-11-29 16:38] VITALS: BP 164/72; PULSE 58; RESP 18; TEMP 98.3; O2SAT 98
== END 2024-11-29 16:51 | disposition home or self-care (01) | DRG 309 ==
LOC: ER 11:16 → ERHOLD 12:46 → MED/SURG 18:41
PROVIDERS: ADMIT Internal Medicine; ATTEND Internal Medicine
DX: I48.91 Unspecified atrial fibrillation (principal); I50.32 Chronic diastolic (congestive) heart failure; I11.0 Hypertensive heart disease with heart failure; I16.0 Hypertensive urgency; I25.10 Atherosclerotic heart disease of native coronary artery without angina pectoris; Z95.5 Presence of coronary angioplasty implant and graft; F41.9 Anxiety disorder, unspecified; E78.5 Hyperlipidemia, unspecified; Z85.6 Personal history of leukemia; Z79.01 Long term (current) use of anticoagulants
CPT/HCPCS: 36415; 71045; 80048; 80053; 80061; 81001; 82550; 83036; 83735; 83880; 84443; 84484; 85025; 85379; 85610; 85730; 87040; 87086; 93005; 93306; 94760; 99284; J0696; J1644; J1885; J2470

== ENCOUNTER 2025-06-14 14:05 | Emergency (ER) | payer MEDICARE ==
[~2025-06-14] VITALS: Ht 154.9 cm; Wt 81.6 kg
[~2025-06-14 14:05] MED LIST changes: +ASPIRIN CHEW81 MG PO; +ELIQUIS5 MG PO; +METOPROLOL TART50 MG PO; +NAPROXEN250 MG PO
[2025-06-14 14:16] VITALS: TEMP 97.7
[2025-06-14 15:05] LABS: BASOPHILS % 0.3 % (0.0-1.0); EOSINOPHILS % 0.6 % (0.0-6.0); LYMPHOCYTES % 81.9 % (18.0-39.1); MONOCYTES % 2.3 % (4.4-11.3); NEUTROPHILS % 14.8 % (38.7-80.0); RED CELL DISTRIBUTION WIDTH 14.3 % (11.7-14.4)
[2025-06-14 15:22] LABS: INR 0.91
[2025-06-14 15:32] LABS: EST GLOMERULAR FILTRATION RATE 81 ML/MIN (>=60)
[2025-06-14 15:51] LABS: CORONAVIRUS COVID-19 AG NEGATIVE (NEGATIVE)
[2025-06-14 16:20] LABS: BAND NEUTROPHILS % (MANUAL) 1 %; LYMPHOCYTES % (MANUAL) 77 % (19-48); MONOCYTES % (MANUAL) 1 % (3.4-9.0); NEUTROPHILS % (MANUAL) 18 % (40-74); REACTIVE LYMPHOCYTES 3
[2025-06-14 16:23] LABS: PLATELET ESTIMATE ADEQUATE; PLATELET MORPHOLOGY COMMENT NORMAL; RBC MORPHOLOGY COMMENT NORMAL
[2025-06-14] MEDS ORDERED: SODIUM CHLORIDE 0.9% 1000ML 1,000 ML ONE (16:58)
[2025-06-14] MEDS: SODIUM CHLORIDE 0.9% 1000ML 1,000 ML IV STA (17:00)
[2025-06-14 17:19] LABS: LEUKOCYTE ESTERASE ,URINE TRACE (NEGATIVE); PROTEIN,URINE DIPSTICK NEGATIVE (NEGATIVE); URINE UROBILINOGEN 0.2 mg/dL (0.2 - 1)
[2025-06-14 17:44] LABS: WBC,URINE (MAN) 0-5 /HPF (0-5)
[2025-06-14 17:45] LABS: EPITHELIAL CELLS,URINE FEW /LPF
[2025-06-14 18:42] VITALS: PULSE 54; RESP 19
[2025-06-14 19:57] VITALS: BP 137/99; PULSE 57; RESP 17; TEMP 97.9; O2SAT 100
== END 2025-06-14 19:00 | disposition home or self-care (01) ==
LOC: ER 14:15
DX: R00.2 Palpitations (principal); I48.20 Chronic atrial fibrillation, unspecified; N39.0 Urinary tract infection, site not specified; R06.02 Shortness of breath; R53.1 Weakness; R42 Dizziness and giddiness; I10 Essential (primary) hypertension; I50.9 Heart failure, unspecified; I25.10 Atherosclerotic heart disease of native coronary artery without angina pectoris; E78.5 Hyperlipidemia, unspecified; J45.909 Unspecified asthma, uncomplicated; Z85.6 Personal history of leukemia; Z95.5 Presence of coronary angioplasty implant and graft
CPT/HCPCS: 36415; 71045; 80053; 81001; 83735; 83880; 84484; 85025; 85379; 85610; 85730; 87086; 87426; 93005; 93971; 99284; J7030